=== PATIENT | male | born 1945 | race Caucasian/White ===

== ENCOUNTER → 2019-08-12 | Emergency (ER) | payer MEDICARE ==
[~2019-08-12] VITALS: Ht 170.2 cm; Wt 72.7 kg
[~2019-08-12] MED LIST: AZIT500T2 PO; diltiazem 30mg tablet PO ONE; normal saline 1000ML IV soln IVB ONE
[2019-08-12 18:30] LABS: BASOPHILS % (AUTO) 0.4 % (0-1); EOSINOPHILS % (AUTO) 0.3 % (0-6); HEMATOCRIT 39.9 % (42.0-52.0); HEMOGLOBIN 13.9 g/dl (14.0-17.9); LYMPHOCYTES # (AUTO) 1.2 X10'3 (1.1-4.8); LYMPHOCYTES % (AUTO) 15.1 % (21-51); MEAN CORPUSCULAR HEMOGLOBIN 30.2 PG (27.0-31.0); MEAN CORPUSCULAR VOLUME 86.3 FL (78-98); MEAN PLATELET VOLUME 6.9 FL (7.4-10.4); MONOCYTES # (AUTO) 0.9 X10'3 (0-0.9); MONOCYTES % (AUTO) 11.7 % (2-12); NEUTROPHILS # (AUTO) 5.8 X10'3 (1.8-7.7); NEUTROPHILS % (AUTO) 72.5 % (42-75); PLATELET COUNT 157 X10'3 (140-440); RED BLOOD COUNT 4.62 X10'6 (4.70-6.10); RED CELL DISTRIBUTION WIDTH 14.2 % (11.5-14.5)
[2019-08-12 18:53] LABS: ALANINE AMINOTRANSFERASE 31 U/L (12-78); ALBUMIN 3.5 G/DL (3.4-5.0); ALBUMIN/GLOBULIN RATIO 0.8 (1.1-1.5); ALKALINE PHOSPHATASE 83 IU/L (46-116); ANION GAP 10 (8-16); ASPARTATE AMINO TRANSFERASE 32 U/L (10-37); BILIRUBIN,TOTAL 0.6 MG/DL (0.1-1.0); BLOOD UREA NITROGEN 24 MG/DL (7-18); BUN/CREATININE RATIO 23.5 (5.4-32.0); CALCIUM 8.9 MG/DL (8.5-10.1); CHLORIDE 108 MMOL/L (99-107); CREATININE 1.02 MG/DL (0.60-1.10); GLUCOSE 109 MG/DL (70-104); POTASSIUM 3.6 MMOL/L (3.5-5.1); SODIUM 145 MMOL/L (135-145); TOTAL CARBON DIOXIDE 27.4 MMOL/L (24-32); TOTAL PROTEIN 7.7 G/DL (6.4-8.2); eGFR 71 ML/MIN
--- NOTE | 2019-08-12 18:55 | NUR ---
PATIENTS LA-2.3 DR. CARRASCO MADE AWARE, WAITING FOR ORDERS
--- NOTE | 2019-08-12 18:55 | NUR ---
PATIENT FROM [facility] ADDRESS [id number] [place] [address]
--- NOTE | 2019-08-12 19:48 | NUR ---
LEFT MESSAGE At patients [facility]; [facility], PH # [phone]
--- NOTE | 2019-08-12 20:49 | NUR ---
CONTACTED NURSING FACILITY WAS ABLE TO UNDERSTAND TO CALL TRAN AND IF THEY WILL NOT PICK PATIENT UP I WILL CALL FACILITY AND WILL FIGURE THIS OUT.
--- NOTE | 2019-08-12 21:08 | NUR ---
Otis johnson in [facility] - 08/12/19 at 2128 by RICARDO MARIELY FORBES RN NO QUERSTIONS OR CONCERNS AFTER ASSUMING CARE
--- NOTE | 2019-08-12 21:32 | NUR ---
PATIENTS HR ELEVATED HAD EKG NOTIFIED MD LUNA AWARE OF HR AND OREDERED HR MEDICATION
--- NOTE | 2019-08-12 21:58 | NUR ---
GIVEN CARDIZIEM TABLET. FOR HR UP TO 122-130. DR. GROSS AWARE. PT ABLE TO SWALLOW TABLET AND DRINK WATER WITH NO DIFFICULTIES.
[2019-08-12 22:23] VITALS: BP 137/107
--- NOTE | 2019-08-12 22:51 | NUR ---
CALLED FACILITY TO MAKE AWARE PATIENT ON WAY BACK AND TO HAVE PERSCRIPTION FILLED TOMMORROW
== END | disposition home or self-care (01) ==
LOC: ER 18:06
DX: R05 Cough (principal); I48.91 Unspecified atrial fibrillation; E78.00 Pure hypercholesterolemia, unspecified; I10 Essential (primary) hypertension; F03.90 Unspecified dementia, unspecified severity, without behavioral disturbance, psychotic disturbance, mood disturbance, and anxiety; G20 Parkinson's disease; Z79.2 Long term (current) use of antibiotics
CPT/HCPCS: 36415; 71045; 80053; 83605; 85025; 87040; 93005; 99284; J7030